=== PATIENT | female | born 1985 | race Caucasian/White ===

== ENCOUNTER 2016-09-25 22:25 | Emergency (ER) | payer OTHER ==
[~2016-09-25] VITALS: Ht 165.1 cm; Wt 49.9 kg
[2016-09-25 22:32] VITALS: BP 105/78
--- NOTE | 2016-09-25 22:41 | NUR ---
PT TAKEN TO ULTRASOUND FROM [facility]
--- NOTE | 2016-09-25 23:05 | NUR ---
PT RETURN FROM ULTRASOUND TO BED 2
--- NOTE | 2016-09-25 23:05 | NUR ---
PATIENT PRESENTS TO ED WITH C.O. LOWER ABDOMINAL, PELVIC PAIN AND NAUSEA, AFTER INTERCOURSE TODAY. PT DENIES V/D; SKIN IS PINK/WARM/DRY; AAOX4 WITH EVEN AND STEADY GAIT; LUNGS CLEAR BL; HR EVEN AND REGULAR; PT DENIES ANY FEVER, CP, SOB, OR COUGH AT THIS TIME; PATIENT STATES PAIN OF 7/10 AT THIS TIME; VSS; PATIENT POSITIONED FOR COMFORT; HOB ELEVATED; BEDRAILS UP X2; BED DOWN. ER MD MADE AWARE OF PT STATUS.
--- NOTE | 2016-09-25 23:56 | NUR ---
Dr. Hinojosa evaluating patient at bedside.
[2016-09-26] MEDS ORDERED: traMADol 50 MG TAB PO ONE (00:10)
[2016-09-26 00:48] VITALS: BP 112/79
== END 2016-09-26 00:49 | disposition home or self-care (01) ==
LOC: MED 22:25
DX: N83.201 Unspecified ovarian cyst, right side (principal)